=== PATIENT | male | born 1950 | race Caucasian/White ===

== ENCOUNTER 2016-05-31 10:46 | Emergency (ER) | payer BC, OTHER ==
[2016-05-31 10:48] VITALS: TEMP 98.4
[2016-05-31 10:55] VITALS: BMI 49.4
--- NOTE | 2016-05-31 11:30 | EDPRACDOC ---
- General Information Chief Complaint: Generalized Weakness Stated Complaint: WEAKNESS Time Seen by Provider: 05/31/16 11:12 Mode Of Arrival: Car Home Medications: Home Medications Pravastatin Sodium [Pravachol] 20 mg PO HS 04/15/14 Aspirin [Aspirin EC] 81 mg PO HS 05/31/16 Cholecalciferol (Vitamin D3) [Vitamin D3] 1,000 unit PO QAM 05/31/16 Cyanocobalamin (Vitamin B-12) [B-12] 1,500 mcg PO QAM 05/31/16 Docusate Sodium [Doc-Q-Lace] 100 mg PO DAILY PRN 05/31/16 Fluticasone Propionate [Flonase Nasal [place]] 1 spray [place] HS 05/31/16 Fluticasone/Vilanterol [Breo Ellipta 200-25 Mcg INH] 1 puff INH DAILY PRN Furosemide [Lasix] 20 mg PO DAILY 05/31/16 Insulin Detemir [Levemir] 30 unit SQ HS 05/31/16 Lisinopril/Hydrochlorothiazide [Lisinopril-Hctz 10-12.5 mg Tab] 1 tab PO QAM 10/09 Pioglitazone HCl/Metformin HCl [Actoplus Met 15 mg-850 mg Tab] 1 each PO BID 10/09 Ranolazine [Ranexa] 500 mg PO BID 05/31/16 Tamsulosin HCl [Flomax] 0.4 mg PO HS 05/31/16 Allergies/Adverse Reactions: Allergies Allergy/AdvReac Type Severity Reaction Status Date / Time Iodinated Contrast Media - Allergy Intermediate Fever Verified 05/31/16 11:42 IV Dye iodine Allergy Fever Verified 05/31/16 11:42 - History of Present Illness Onset: 4 days ago Exact Onset of Symptoms: Unknown HPI: PT SAID THAT HE'S HAD WEAKNESS FOR THE PAST FEW DAYS. HE DEVELOPED SLURRED SPEECH ON TUESDAY (05/27). PT SAID THAT HE IS DRAGGING HIS FEET. Symptoms Started: Reports: Gradually Symptoms Description: Constant Weakness: Bilateral: Generalized Symptoms: Reports: Weak Associated signs and symptoms:: Reports: None ED Past Medical History - Patient Medical History Cardiac History: Reports: Coronary Artery Disease, Hypertension, Congestive Heart Failure, Cardiac Catheterization (2002), CABG, Hypercholesterolemia. Denies: Heart Attack (UNKNOWN) Respiratory History: Reports: Asthma. Denies: Pneumonia GI/ History: Reports: IBD, Diverticulosis, Pancreatitis Musculoskeletal History: Reports: Arthritis Systemic History: Reports: Cancer (prostate). Denies: Anemia Surgical History: Reports: Cholecystectomy, CABG, Cardiac Catheterization (2002) , Other (PROSTATECTOMY) - Family Medical History Reports: Hypertension (MOTHER), Diabetes, Cancer (FATHER PROSTATE CA), Cardiac Disorders (MOTHER). Denies: Stroke - Social Medical History Smoking Status: Former smoker ETOH: None Substance Abuse: None Lives With: Spouse Lives In: Home EDM Review of Systems - Review of Systems ROS Negative Except as Marked: Yes All systems reviewed and were negative except as marked Constitutional: Weakness Neurological: Speech Difficulty - Physical Exam Constitutional: Alert (Awake), No apparent distress Oriented to: Time, Person, Place Last recorded Vital Signs: Last Vital Signs Temp 98.4 F 05/31/16 10:48 Pulse 72 05/31/16 10:48 Resp 18 05/31/16 10:48 BP 215/93 H 05/31/16 10:48 Pulse Ox 99 05/31/16 10:48 Oxygen Pulse Oxygen Saturation 99 O2 Device Oxygen Flow Rate Fraction of Inspired Oxygen ( FIO2) - HEENT Head: Normal ( normocephalic) Eye Exam: Normal (PERRL, EOMI, Sclera white) Oropharynx: Normal (Pharynx:Moist without exudate,Gums-no swelling) ENT EAC: Normal TMJ: Normal Nose: No Symptoms Reported (septum midline) Neck: Normal (FROM, trachea at midline) - Respiratory/Cardiovascular Respiratory: Normal - CTA (BBS clear to auscultation without adventitious sounds ) Cardiovascular: Normal (RRR without murmur, gallop or rub) - GI Auscultation: Normal (NABS) Palpation: Normal (Soft,No rebound or guarding, non distended) Tenderness: Non tender Wells's Sign: Negative - Musculoskeletal Back: Normal (Non-Tender) Extremities: Normal (Normal tone, Pulses 2+ No cyanosis or edema, FROM) - Integumentary Skin: Normal, Warm, Dry Lymphatics: Normal (no adenopathy) - Neurologic Memory Impaired: Normal Motor Function: Normal (Normal tone, Pulses 2+ No cyanosis or edema, FROM) Cranial Nerve: Normal (CN II-X11 intact sensation, strength 5/5) Cerebellar: Normal Mood Description: Normal Perception: Normal - Re-evaluation Re-evaluation 1 Re-evaluation Time: 13:54 (FEELING BETTER.) - Results 05/31/16 11:28 05/31/16 11:28 - EKG EKG #1 EKG Time: 11:13 -: Yes EKG interpreted by me Rate: bpm: 61 [place]: Normal Rhythm: NSR Block: RBBB Hypertrophy: None ST: Normal - Diagnostic Imaging Chest Image interpreted by: Radiologist Limited study with no acute abnormalities identified. - Additional Information PT ABLE TO AMBULATE WITH OUT DIFFICULTY. Decision Time to Discharge: 13:54 - Departure Yes I personally saw and evaluated the patient. Disposition: Home Condition: Fair Final Diagnosis: Poorly controlled type 2 diabetes mellitus, TIA (transient ischemic attack) Instructions: Transient Ischemic Attack (ED), Type 2 Diabetes in Adults (ED) Education/Counseling Given To: Patient, Family Member Education/Counseling Given Regarding: Diagnosis, Treatment, Follow Up Referrals: None,No Provider [NonStaff] - One Week Rolo Bernabe MD [Staff Physician] - One Week Prescriptions: No Action Pravastatin Sodium [Pravachol] 20 mg PO HS Cholecalciferol (Vitamin D3) [Vitamin D3] 1,000 unit PO QAM Aspirin [Aspirin EC] 81 mg PO HS Tamsulosin HCl [Flomax] 0.4 mg PO HS Furosemide [Lasix] 20 mg PO DAILY Docusate Sodium [Doc-Q-Lace] 100 mg PO DAILY PRN PRN Reason: Constipation Ranolazine [Ranexa] 500 mg PO BID Pioglitazone HCl/Metformin HCl [Actoplus Met 15 mg-850 mg Tab] 1 each PO BID Lisinopril/Hydrochlorothiazide [Lisinopril-Hctz 10-12.5 mg Tab] 1 tab PO QAM Cyanocobalamin (Vitamin B-12) [B-12] 1,500 mcg PO QAM Insulin Detemir [Levemir] 30 unit SQ HS Fluticasone/Vilanterol [Breo Ellipta 200-25 Mcg INH] 1 puff INH DAILY PRN PRN Reason: BREATHING Fluticasone Propionate [Flonase Nasal [place]] 1 spray [place] HS Forms: Patient Discharge Instructions, ED Discharge Instructions Additional Instructions: INCREASE ASA TO 325 MG DAILY. MAY NEED OUTPATIENT CAROTID US.
[2016-05-31 11:42] LABS: AUTOMATED BASOPHIL 1.1 % (0-2); AUTOMATED EOSINOPHIL 2.1 % (0-5); AUTOMATED LYMPH 17.5 % (17-44); AUTOMATED MONOCYTE 8.7 % (3-10); AUTOMATED NEUTROPHIL 70.6 % (45-76); MPV 7.7 fL (7.4-10.4)
[2016-05-31 11:55] LABS: BLOOD UREA NITROGEN 18 MG/DL (9-20); CALCIUM 9.5 MG/DL (8.4-10.2); CALCULATED OSMOLALITY 279 MOs/Kg (270-290); CHLORIDE 100 mEq/L (98-107); GLUCOSE 298 mg/dL (70-99); PARTIAL THROMB. TIME 26.1 SEC (22-35); SODIUM LEVEL 138 mEq/L (137-146); TOTAL PROTEIN 7.2 G/DL (6.3-8.2)
--- NOTE | 2016-05-31 12:11 | DIRPT ---
CLINICAL DATA: Mental status change EXAM: PORTABLE CHEST 1 VIEW COMPARISON: January 29, 2015 FINDINGS: The study is limited due to the portable technique. No pneumothorax. Low volumes limit evaluation. Probable atelectasis in the left lung base. The cardiomediastinal silhouette is unchanged. No acute abnormalities identified. A PA and lateral chest x-ray could better evaluate. IMPRESSION: Limited study with no acute abnormalities identified. Electronically Signed By: Hunter Busch III, M.D On: 05/31/2016 12:09
--- NOTE | 2016-05-31 12:52 | DIRPT ---
CLINICAL DATA: Mental status changes, slurred speech today. EXAM: CT HEAD WITHOUT CONTRAST TECHNIQUE: Contiguous axial images were obtained from the base of the skull through the vertex without intravenous contrast. COMPARISON: None. FINDINGS: Small left basal ganglia lacunar infarct versus dilated perivascular space. No acute intracranial abnormality. Specifically, no hemorrhage, hydrocephalus, mass lesion, acute infarction, or significant intracranial injury. No acute calvarial abnormality. Visualized paranasal sinuses and mastoids clear. Orbital soft tissues unremarkable. IMPRESSION: No acute intracranial abnormality. Electronically Signed By: Reji Bolton M.D. On: 05/31/2016 12:50
[2016-05-31 13:28] LABS: LEUKOCYTES/URINE NEG (NEGATIVE); NITRITE/URINE NEG (NEGATIVE); RBC/URINE 0-2 (0-2); URINE OCCULT BLOOD NEG (NEG/TRACE); WBC/URINE 0-2 (0-2)
[2016-05-31] MEDS ORDERED: REGULAR INSULIN 100 UNITS/ML - 3 ML VIAL IV ONE (14:00)
[2016-05-31 14:32] VITALS: PULSE 62
[2016-05-31 14:33] VITALS: BP 156/68
== END 2016-05-31 14:15 | disposition home or self-care (01) ==
LOC: ED 10:46
DX: E11.65 Type 2 diabetes mellitus with hyperglycemia (principal); G45.9 Transient cerebral ischemic attack, unspecified; I25.10 Atherosclerotic heart disease of native coronary artery without angina pectoris; I10 Essential (primary) hypertension; I50.9 Heart failure, unspecified; E78.00 Pure hypercholesterolemia, unspecified; J45.909 Unspecified asthma, uncomplicated; Z79.899 Other long term (current) drug therapy; Z79.4 Long term (current) use of insulin
CPT/HCPCS: 36415; 70450; 71010; 80053; 81001; 82962; 84484; 85025; 85610; 85730; 93005; 96374; 99284; J3490

== ENCOUNTER 2016-06-03 13:19 | Inpatient (IN) | payer BC ==
--- NOTE | 2016-06-03 14:48 | EDPRACDOC ---
- General Information Information Source: Patient Mode of Arrival:: Car - History of Present Illness Exact Onset of Symptoms: Unknown Symptoms Started: Reports: Gradually Symptoms: Reports: Difficulty walking, Slurred speech Symptoms Description: Constant Symptom Severity: Reports: Does not affect activitiy Weakness: Left: Arm (WEAKNESS), Leg (WEAKNESS) Relevant History of: Reports: DM HPI: PT PRESENTS FOLLOWING HAVING AN MRI DONE THIS AM WHICH SHOWED A LARGE ACUTE OBIE INFARCT. PT WAS SEEN AT THIS FACILITY SEVERAL DAYS AGO AND HAD A CT SCAN DONE WHICH WAS NORMAL. PT PRESENTS WITH ONGOING SYMPTOMS OF SLURRED SPEECH, LEFT SIDED WEAKNESS AND EXPRESSIVE APHASIA. <Nita Mac - Last Filed: 06/03/16 15:01> <Dion Brar - Last Filed: 06/03/16 16:28> - General Information Chief Complaint: Neuro Symptoms/Deficits Stated Complaint: STROKE MRI DONE THIS AM Time Seen by Provider: 06/03/16 14:19 Home Medications: Home Medications Pravastatin Sodium [Pravachol] 20 mg PO QHS 04/15/14 Cholecalciferol (Vitamin D3) [Vitamin D3] 1,000 unit PO QAM 05/31/16 Cyanocobalamin (Vitamin B-12) [B-12] 1,500 mcg PO QAM 05/31/16 Docusate Sodium [Doc-Q-Lace] 100 mg PO DAILY PRN 05/31/16 Fluticasone Propionate [Flonase Nasal [place]] 1 spray [place] HS 05/31/16 Fluticasone/Vilanterol [Breo Ellipta 200-25 Mcg INH] 1 puff INH DAILY PRN Furosemide [Lasix] 20 mg PO DAILY 05/31/16 Insulin Detemir [Levemir] 30 unit SQ QHS 05/31/16 Lisinopril/Hydrochlorothiazide [Lisinopril-Hctz 10-12.5 mg Tab] 1 tab PO QAM 10/09 Pioglitazone HCl/Metformin HCl [Actoplus Met 15 mg-850 mg Tab] 1 tab PO BID 10/09 Ranolazine [Ranexa] 500 mg PO BID 05/31/16 Tamsulosin HCl [Flomax] 0.4 mg PO QHS 05/31/16 Aspirin/Calcium Carbonate/Mag [Aspirin Buffered 325 mg Tab] 325 mg PO QHS Allergies/Adverse Reactions: Allergies Allergy/AdvReac Type Severity Reaction Status Date / Time Iodinated Contrast Media - Allergy Intermediate Fever Verified 06/03/16 14:05 IV Dye iodine Allergy Fever Verified 06/03/16 14:05 ED Past Medical History - History Reviewed Yes Nurses notes reviewed and agree except as marked - Patient Medical History Cardiac History: Reports: Coronary Artery Disease, Hypertension, Congestive Heart Failure, Cardiac Catheterization (2002), CABG, Hypercholesterolemia. Denies: Heart Attack (UNKNOWN) Respiratory History: Reports: Asthma. Denies: Pneumonia GI/ History: Reports: IBD, Diverticulosis, Pancreatitis Musculoskeletal History: Reports: Arthritis Psychological History: Denies: Depression Systemic History: Reports: Cancer (prostate). Denies: Anemia Surgical History: Reports: Cholecystectomy, CABG, Cardiac Catheterization (2002) , Other (PROSTATECTOMY) - Family Medical History Reports: Hypertension (MOTHER), Diabetes, Cancer (FATHER PROSTATE CA), Cardiac Disorders (MOTHER). Denies: Stroke - Social Medical History Smoking Status: Former smoker <Nita Mac - Last Filed: 06/03/16 15:01> EDM Review of Systems - Review of Systems ROS Negative Except as Marked: Yes All systems reviewed and were negative except as marked <Nita Mac - Last Filed: 06/03/16 15:01> - Physical Exam Constitutional: Alert, Well nourished, Well appearing Oriented to: Time, Person, Place Last recorded Vital Signs: Last Vital Signs Temp 98.3 F 06/03/16 14:00 Pulse 84 06/03/16 14:00 Resp 18 06/03/16 14:00 BP 191/84 H 06/03/16 14:00 Pulse Ox 97 06/03/16 14:00 Oxygen Pulse Oxygen Saturation 97 O2 Device Room Air Oxygen Flow Rate Fraction of Inspired Oxygen ( FIO2) - HEENT Head: Normal ( normocephalic) Eye Exam: Normal (PERRL, EOMI, Sclera white) Oropharynx: Normal (Pharynx:Moist without exudate,Gums-no swelling) Tympanic Membrane: Normal Nose: No Symptoms Reported (septum midline) Neck: Normal (FROM, trachea at midline) - Respiratory/Cardiovascular Respiratory: Normal - CTA (BBS clear to auscultation without adventitious sounds ) Cardiovascular: Normal (RRR without murmur, gallop or rub) - GI Auscultation: Normal (NABS) Palpation: Normal (Soft,No rebound or guarding, non distended) Tenderness: Non tender Wells's Sign: Negative Rectal Exam: Deferred - Musculoskeletal Back: Normal (Non-Tender) Extremities: Normal (Normal tone, Pulses 2+ No cyanosis or edema, FROM) - Integumentary Skin: Normal, Warm, Dry Lymphatics: Normal (no adenopathy) - Neurologic Memory Impaired: Normal Motor Function: Normal (Normal tone, Pulses 2+ No cyanosis or edema, FROM) Cranial Nerve: Normal (CN II-X11 intact sensation, strength 5/5) Cerebellar: Normal Mood Description: Normal Thought: Coherent Perception: Normal <Nita Mac - Last Filed: 06/03/16 15:01> - Physical Exam Last recorded Vital Signs: Last Vital Signs Temp 98.3 F 06/03/16 14:00 Pulse 72 06/03/16 15:05 Resp 18 06/03/16 15:05 BP 146/64 06/03/16 15:05 Pulse Ox 96 06/03/16 15:05 Oxygen Pulse Oxygen Saturation 96 O2 Device Room Air Oxygen Flow Rate Fraction of Inspired Oxygen ( FIO2) <Dion Brar - Last Filed: 06/03/16 16:28> NIH Stroke Scale Initial Evaluation Level of Consciousness: Alert LOC- Question: Answers Both Correctly LOC Commands: Both Task Correctly Best Gaze: Normal Visual: No Visual Loss Facial Palsy: Normal Movement Motor Arm LEFT: No Drift Motor Arm RIGHT: No Drift Motor Leg LEFT: No Drift Motor Leg RIGHT: No Drift Limb Ataxia: Absent Sensory: Normal Best Language: Mild to Moderate Aphasia Dysarthria: Normal Extinction and Inattention: No Abnormality (Neglect) Score: 1out of42 <Nita Mac - Last Filed: 06/03/16 15:01> - Differential Diagnosis CVA - Action Has patient received an Antithrombotic in the last 24hrs?: No Was an Antithrombotic given in the ED?: No Is patient a candidate for lytic therapy?: No Patient received TPA within 30 min of arrival?: No Reason IV Thrombolytics Contraindicated: Onset Undetermined Stroke Discharge Education: Risk Factors, Seeking Emerg. Treatment, Warning Signs/Symptoms, Medications at Discharge, Follow Up after Discharge - Results 06/03/16 14:30 06/03/16 14:30 - EKG EKG #1 EKG Time: 14:59 -: Yes EKG interpreted by me Rate: bpm: 71 [place]: Normal Rhythm: NSR Block: 1, AVB, RBBB Hypertrophy: None ST: Normal <Nita Mac W - Last Filed: 06/03/16 15:01> - Results 06/03/16 14:30 06/03/16 14:30 WBC 7.4 xk/uL (3.8-10.8) 06/03/16 14:30 RBC 4.97 xM/uL (4.70-6.10) 06/03/16 14:30 Hgb 14.4 g/dL (14.0-18.0) 06/03/16 14:30 Hct 43.3 % (42-52) 06/03/16 14:30 MCV 87 fL (80-94) 06/03/16 14:30 MCH 29.0 pg (27-32) 06/03/16 14:30 MCHC 33.4 g/dl (33-36) 06/03/16 14:30 RDW 13.2 % (11.5-14.5) 06/03/16 14:30 Plt Count 210 xk/uL (130-400) 06/03/16 14:30 MPV 8.4 fL (7.4-10.4) 06/03/16 14:30 Neut % (Auto) 74.3 % (45-76) 06/03/16 14:30 Lymph % (Auto) 17.8 % (17-44) 06/03/16 14:30 [place] % (Auto) 6.2 % (3-10) 06/03/16 14:30 Eos % (Auto) 0.7 % (0-5) 06/03/16 14:30 Baso % (Auto) 1.0 % (0-2) 06/03/16 14:30 Absolute Neuts (auto) 5.48 xk/uL (1.7-8.2) 06/03/16 14:30 Absolute Lymphs (auto) 1.26 xk/uL (0.65-4.75) 06/03/16 14:30 Sodium 136 mEq/L (137-146) L 06/03/16 14:30 Potassium 4.2 mEq/L (3.5-5.1) 06/03/16 14:30 Chloride 101 mEq/L (98-107) 06/03/16 14:30 Carbon Dioxide 25 mMOL/L (22-33) 06/03/16 14:30 Anion Gap 14 mEq/L (8-16) 06/03/16 14:30 BUN 21 MG/DL (9-20) H 06/03/16 14:30 Creatinine 0.90 MG/DL (0.66-1.25) 06/03/16 14:30 Estimated GFR (MDRD) > 60 mL/min (>=60) 06/03/16 14:30 Glucose 253 mg/dL (70-99) H 06/03/16 14:30 Calculated Osmolality 274 MOs/Kg (270-290) 06/03/16 14:30 Calcium 9.4 MG/DL (8.4-10.2) 06/03/16 14:30 Total Bilirubin 1.0 MG/DL (0.2-1.3) 06/03/16 14:30 AST 21 IU/L (17-59) 06/03/16 14:30 ALT 35 IU/L (21-72) 06/03/16 14:30 Alkaline Phosphatase 75 IU/L (50-160) 06/03/16 14:30 Total Protein 7.0 G/DL (6.3-8.2) 06/03/16 14:30 Albumin 4.0 G/DL (3.5-5.0) 06/03/16 14:30 Urine Color Yellow 06/03/16 14:50 Urine Clarity Clear 06/03/16 14:50 Urine pH 5.0 (5.0-8.0) 06/03/16 14:50 Ur Specific [place] 1.020 (1.003-1.035) 06/03/16 14:50 Urine Protein Neg (NEG/TRACE) 06/03/16 14:50 Urine Glucose (UA) 3+ (NEGATIVE) 06/03/16 14:50 Urine Ketones Neg (NEGATIVE) 06/03/16 14:50 Urine Occult Blood Neg (NEG/TRACE) 06/03/16 14:50 Urine Nitrite Neg (NEGATIVE) 06/03/16 14:50 Urine Bilirubin Neg (NEGATIVE) 06/03/16 14:50 Urine Urobilinogen <2.0 MG/DL (0-1) 06/03/16 14:50 Ur Leukocyte Esterase Neg (NEGATIVE) 06/03/16 14:50 Urine RBC 0-2 (0-2) 06/03/16 14:50 Urine WBC 0-2 (0-2) 06/03/16 14:50 Urine Mucus Occ (NEG/OCC) 06/03/16 14:50 Lab Results 06/03/16 06/03/16 06/03/16 14:50 14:30 14:30 WBC 7.4 RBC 4.97 Hgb 14.4 Hct 43.3 MCV 87 MCH 29.0 MCHC 33.4 RDW 13.2 Plt Count 210 MPV 8.4 Neut % (Auto) 74.3 Lymph % (Auto) 17.8 [place] % (Auto) 6.2 Eos % (Auto) 0.7 Baso % (Auto) 1.0 Absolute Neuts (auto) 5.48 Absolute Lymphs (auto) 1.26 Sodium 136 L Potassium 4.2 Chloride 101 Carbon Dioxide 25 Anion Gap 14 BUN 21 H Creatinine 0.90 Estimated GFR (MDRD) > 60 Glucose 253 H Calculated Osmolality 274 Calcium 9.4 Total Bilirubin 1.0 AST 21 ALT 35 Alkaline Phosphatase 75 Total Protein 7.0 Albumin 4.0 Urine Color Yellow Urine Clarity Clear Urine pH 5.0 Ur Specific [place] 1.020 Urine Protein Neg Urine Glucose (UA) 3+ Urine Ketones Neg Urine Occult Blood Neg Urine Nitrite Neg Urine Bilirubin Neg Urine Urobilinogen <2.0 Ur Leukocyte Esterase Neg Urine RBC 0-2 Urine WBC 0-2 Urine Mucus Occ <Dion Brar - Last Filed: 06/03/16 16:28> - Departure Disposition: Admit IP To This Hospital Education/Counseling Given To: Patient Education/Counseling Given Regarding: Diagnosis, Treatment, Prognosis, Follow Up <Nita Mac - Last Filed: 06/03/16 15:01> - Departure Disposition: Admit IP To This Hospital Decision to Admit Time: 16:27 Decision to admit date: 06/03/16 Decision to admit: from ED - Physician Consulted Neurology Time Called: 16:27 Provider Called: Dequan Gomez Time Quality Officer Returned Call: 16:27 Consult Reason: RECOMMENDS ADMIT, CVA WORKUP, PT, SPEECH Hospitalist Time Called: 16:28 Provider Called: Luis Alfredo Miranda Time Quality Officer Returned Call: 16:28 <Dion Brar - Last Filed: 06/03/16 16:28> - Departure Condition: Stable Final Diagnosis: CVA (cerebral vascular accident) Qualifiers: CVA mechanism: unspecified Qualified Code(s): I63.9 - Cerebral infarction, unspecified Prescriptions: No Action Pravastatin Sodium [Pravachol] 20 mg PO QHS Cholecalciferol (Vitamin D3) [Vitamin D3] 1,000 unit PO QAM Tamsulosin HCl [Flomax] 0.4 mg PO QHS Furosemide [Lasix] 20 mg PO DAILY Docusate Sodium [Doc-Q-Lace] 100 mg PO DAILY PRN PRN Reason: Constipation Ranolazine [Ranexa] 500 mg PO BID Pioglitazone HCl/Metformin HCl [Actoplus Met 15 mg-850 mg Tab] 1 tab PO BID Lisinopril/Hydrochlorothiazide [Lisinopril-Hctz 10-12.5 mg Tab] 1 tab PO QAM Cyanocobalamin (Vitamin B-12) [B-12] 1,500 mcg PO QAM Insulin Detemir [Levemir] 30 unit SQ QHS Fluticasone/Vilanterol [Breo Ellipta 200-25 Mcg INH] 1 puff INH DAILY PRN PRN Reason: BREATHING Fluticasone Propionate [Flonase Nasal [place]] 1 spray [place] HS Aspirin/Calcium Carbonate/Mag [Aspirin Buffered 325 mg Tab] 325 mg PO QHS
[2016-06-03 14:59] LABS: AUTOMATED EOSINOPHIL 0.7 % (0-5); AUTOMATED LYMPH 17.8 % (17-44); AUTOMATED MONOCYTE 6.2 % (3-10); AUTOMATED NEUTROPHIL 74.3 % (45-76); MPV 8.4 fL (7.4-10.4)
[2016-06-03 15:07] LABS: BLOOD UREA NITROGEN 21 MG/DL (9-20); CALCIUM 9.4 MG/DL (8.4-10.2); CALCULATED OSMOLALITY 274 MOs/Kg (270-290); CHLORIDE 101 mEq/L (98-107); GLUCOSE 253 mg/dL (70-99); SODIUM LEVEL 136 mEq/L (137-146)
[2016-06-03 15:08] LABS: LEUKOCYTES/URINE NEG (NEGATIVE); NITRITE/URINE NEG (NEGATIVE); RBC/URINE 0-2 (0-2); URINE OCCULT BLOOD NEG (NEG/TRACE); WBC/URINE 0-2 (0-2)
[2016-06-03] MEDS ORDERED: DEXTROSE 25 GM/50 ML PFS IV PRN (16:58)
[2016-06-03] MEDS ORDERED: Albuterol/Ipratropium Neb 3 ML NEB NEB PRN (16:58)
[2016-06-03] MEDS ORDERED: GLUCAGON 1 MG VIAL SQ PRN (16:58)
[2016-06-03] MEDS ORDERED: GLUCOSE (ORAL GEL) 15 GM TUBE PO PRN (16:58)
[2016-06-03] MEDS ORDERED: Non-Formulary Medication ITEM (Fluticasone/Vilanterol [Breo Ellipta 200-25 Mcg Inh] 1 PU INH PRN (17:03)
[2016-06-03] MEDS ORDERED: BUDESONIDE 0.5 MG NEB NEB PRN (17:16)
[2016-06-03] MEDS ORDERED: ALBUTEROL 0.083% 3 ML NEB NEB PRN (17:17)
--- NOTE | 2016-06-03 17:21 | HISTPHYS ---
- Chief Complaint left sided weaknesss, ataxia, slurred speach - History of Present Illness 65 yowm sent to emergency room early on today for evaluation of CVA. Patient family reports that despite acidity fairly abruptly he has developed slurring of the speech and left-sided weakness dysphagia and expressive aphasia. He stays that right upper extremity weakness was much more pronounced than the lower extremity. Family noticed confusion periods of disorientation and difficulties finding words. Patient reports headaches but denies any blurring or double vision. stays that since steady his speech has been persistently slurred and he has been having episodes of coughing, choking and throat clearing with eating. Patient has been feeling dizzy lightheaded and off balance. Family recommended evaluation at the onset of symptoms however refused to go to emergency room. Given persistence of the symptoms patient was seen by his PCP and MRI was obtained which showed right-sided pontine CVA. After over the phone consultation with neurologist he was advised to proceed to emergency room for further evaluation. Patient denies any falls or accidents, there has been no seizure activity since the onset of his neurological symptoms. - Medical History Cardiac History: Reports: Coronary Artery Disease, Hypertension, Congestive Heart Failure, Cardiac Catheterization (2002), CABG, Hypercholesterolemia, Valvular Heart Disease. Denies: Heart Attack (UNKNOWN) Respiratory History: Reports: Asthma. Denies: Pneumonia GI/ History: Reports: IBD, Diverticulosis, Pancreatitis Musculoskeletal History: Reports: Arthritis Systemic History: Reports: Cancer (prostate). Denies: Anemia Neurological History: Reports: Cerebrovascular Accident Psychological History: Denies: Depression - Surgical History Reports: Cholecystectomy, CABG, Cardiac Catheterization (2002), Other ( PROSTATECTOMY, right tkr) - Medictions/Allergies Allergies Iodinated Contrast Media - IV Dye Allergy (Intermediate, Verified 06/03/16 14:05 ) Fever iodine Allergy (Verified 06/03/16 14:05) Fever Current Medication List: Reviewed Home Medications Pravastatin Sodium [Pravachol] 20 mg PO QHS 04/15/14 Cholecalciferol (Vitamin D3) [Vitamin D3] 1,000 unit PO QAM 05/31/16 Cyanocobalamin (Vitamin B-12) [B-12] 1,500 mcg PO QAM 05/31/16 Docusate Sodium [Doc-Q-Lace] 100 mg PO DAILY PRN 05/31/16 Fluticasone Propionate [Flonase Nasal [place]] 1 spray [place] HS 05/31/16 Fluticasone/Vilanterol [Breo Ellipta 200-25 Mcg INH] 1 puff INH DAILY PRN Furosemide [Lasix] 20 mg PO DAILY 05/31/16 Insulin Detemir [Levemir] 30 unit SQ QHS 05/31/16 Lisinopril/Hydrochlorothiazide [Lisinopril-Hctz 10-12.5 mg Tab] 1 tab PO QAM 10/09 Pioglitazone HCl/Metformin HCl [Actoplus Met 15 mg-850 mg Tab] 1 tab PO BID 10/09 Ranolazine [Ranexa] 500 mg PO BID 05/31/16 Tamsulosin HCl [Flomax] 0.4 mg PO QHS 05/31/16 Aspirin/Calcium Carbonate/Mag [Aspirin Buffered 325 mg Tab] 325 mg PO QHS - Family History Reports: Hypertension (MOTHER), Diabetes, Cancer (FATHER PROSTATE CA), Cardiac Disorders (MOTHER). Denies: Stroke - Social History Travel Outside of [place] in the Last 3 Months?: No Lives: With Family Smoking Status: Former smoker - Review of Systems Constitutional: Diaphoresis, Loss of Appetite, Weakness Eyes: No Symptoms Reported Nose: No Symptoms Reported Mouth: No Symptoms Reported Throat/Neck: No Symptoms Reported Respiratory: Dyspnea Cardiovascular: No Symptoms Reported Gastrointestinal: No Symptoms Reported, Constipation, Heartburn Genitourinary: Nocturia Neurological: Dizziness, Gait Difficulty, Numbness, Speech Difficulty, Weakness , Memory Changes, Changes in Orientation Musculoskeletal:: Arthritis Integumentary: No Symptoms Reported Allergic/Immunologic: No Symptoms Reported Hematologic: No Symptoms Reported Endocrine: No Symptoms Reported Psychiatric: Anxiety - Physical Exam Vital Signs: Initial Vitals Temperature 98.3 F 06/03/16 14:00 Pulse Rate 84 06/03/16 14:00 Respiratory Rate 18 06/03/16 14:00 Blood Pressure 191/84 H 06/03/16 14:00 Pulse Oxygen Saturation 97 06/03/16 14:00 Constitutional: Alert, Other (Slurring of the speech noted) Oriented to: Time, Person, Place - HEENT Head: Normal Eye: Normal Oropharynx: Normal ENT EAC: Normal TMJ: Normal Nose: No Symptoms Reported Respiratory: Diminished, Rhonchi Cardiovascular: Normal, Systolic murmur - GI Auscultation: Normal Palpation: Normal Tenderness: Non tender Rectal Exam: Deferred - Exam Deferred: Yes - Musculoskeletal Back: Normal Extremities: Normal, Edema Spine: limited range of motion - Integumentary Skin: Normal, Warm, Dry Lymphatics: Normal - Neurologic Memory Impaired: Normal Motor Function: Abnormal Cranial Nerve: negative: 12 Cerebellar: Ataxia Mood Description: Normal, Anxious Thought: Coherent Perception: Normal - Focused CV Perfusion Exam Vital Signs: Last Vital Signs Temp 98.3 F 06/03/16 14:00 Pulse 72 06/03/16 15:05 Resp 18 06/03/16 15:05 BP 146/64 06/03/16 15:05 Pulse Ox 96 06/03/16 15:05 - Diagnostic Findings 06/03/16 14:30 06/03/16 14:30 Initial Vitals Temperature 98.3 F 06/03/16 14:00 Pulse Rate 84 06/03/16 14:00 Respiratory Rate 18 06/03/16 14:00 Blood Pressure 191/84 H 06/03/16 14:00 Pulse Oxygen Saturation 97 06/03/16 14:00 Patient Name: MARYLOU ARAYA LOC: AMB.MRI.01 : 1950 AGE: 65 Order Date:06/03/16 Date of Service:01/09 Report # [id number] Ord Physician: Nidia Garcia NP Exam # [id number] Emergency Physician: Exam(s): [id number] MRI/MRI HEAD WITH WITHOUT CM CLINICAL DATA: Possible stroke. Slurred speech and left-sided weakness beginning 4-5 days ago. History of prostate cancer. EXAM: MRI HEAD WITHOUT AND WITH CONTRAST TECHNIQUE: Multiplanar, multiecho pulse sequences of the brain and surrounding structures were obtained without and with intravenous contrast. CONTRAST: 20 mL MultiHance COMPARISON: Head CT 05/31/2016 FINDINGS: There is a 2 x 1 cm focus of restricted diffusion in the right paramedian yosi consistent with acute infarct. Associated cytotoxic edema is noted without mass effect. There is no evidence of intracranial hemorrhage, mass, midline shift, or extra-axial fluid collection. There is mild cerebral atrophy. Foci of T2 hyperintensity in the periventricular greater than subcortical cerebral white matter bilaterally are nonspecific but compatible with mild chronic small vessel ischemic disease. No abnormal enhancement is identified. Orbits are unremarkable. Paranasal sinuses and mastoid air cells are clear. Major intracranial vascular flow voids are preserved. IMPRESSION: 1. Acute right paramedian pontine infarct. 2. Mild chronic small vessel ischemic disease in the cerebral white matter. These results will be called to the ordering clinician or title insurance sales representative by the Radiology Department at the imaging location. Electronically Signed By: Robert Saleh M.D. 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 Will complete stroke workup with carotid Dopplers and 2D echo (2) Poorly controlled type 2 diabetes mellitus E11.65 - TYPE 2 DIABETES MELLITUS WITH HYPERGLYCEMIA Acute Present on Admission: Yes Will up titrate Levemir to keep blood sugar under control. Continue ADA diet and sliding scale regular insulin. (3) Essential hypertension I10 - ESSENTIAL (PRIMARY) HYPERTENSION Acute Present on Admission: Yes Continue meds keep SBP above 140 (4) Hyperlipemia E78.5 - HYPERLIPIDEMIA, UNSPECIFIED Chronic Present on Admission: Yes Qualifiers: Hyperlipidemia type: mixed hyperlipidemia Qualified Code(s): E78.2 - Mixed hyperlipidemia Continue statin (5) CAD (coronary artery disease), [place] coronary artery I25.10 - ATHSCL HEART DISEASE OF [place] CORONARY ARTERY W/O ANG PCTRS Chronic Present on Admission: Yes Qualifiers: [place] vs. transplanted heart: [place] heart Associated angina: with stable angina Qualified Code(s): I25.118 - Atherosclerotic heart disease of [place] coronary artery with other forms of angina pectoris Continue medical therapy. Consult Cardiology. (6) Obesity E66.9 - OBESITY, UNSPECIFIED Chronic Present on Admission: Yes Qualifiers: Obesity type: due to excess calories Weight loss medically necessary and indicated Case Care Discussed with: Patient, Consultants, Family, Nursing Staff, Crop And Soil Scientist Total Time: 55 min . Critical Care: No Code: [id number]
[2016-06-03] MEDS ORDERED: ENOXAPARIN 80 MG/0.8 ML PFS SQ SCH (18:00)
[2016-06-03] MEDS ORDERED: INSULIN DETEMIR 100 UNITS/ML PEN SQ SCH ×2 (18:00→21:00)
[2016-06-03 18:50] VITALS: BMI 48.6
[2016-06-03] MEDS ORDERED: Vaccine Screening Complete SCH (19:00)
[2016-06-03] MEDS: REGULAR INSULIN 100 UNITS/ML - 3 ML VIAL SQ SCH ×2 (19:26→23:50)
[2016-06-03] MEDS: NS 1,000 ML IV SCH (19:45)
[2016-06-03] MEDS ORDERED: PIOGLITAZONE HCL PO SCH (21:00)
[2016-06-03] MEDS ORDERED: PRAVASTATIN 20 MG TAB PO SCH (21:00)
[2016-06-03] MEDS ORDERED: TAMSULOSIN HCL 0.4 MG CAP PO SCH (21:00)
[2016-06-03] MEDS ORDERED: METFORMIN HCL PO SCH (21:00)
[2016-06-03] MEDS ORDERED: [UNRECOGNIZED DRUG - OTHER] PO SCH (21:00)
[2016-06-03] MEDS: RANOLAZINE 500 MG EXT RELEASE TAB PO SCH (21:26)
[2016-06-04] MEDS: REGULAR INSULIN 100 UNITS/ML - 3 ML VIAL SQ SCH ×2 (06:23→12:42)
[2016-06-04] MEDS: METFORMIN 850 MG PO SCH ×2 (06:24→14:38)
[2016-06-04 07:16] VITALS: TEMP 98.3
[2016-06-04] MEDS: PIOGLITAZONE HCL 15 MG TAB PO SCH ×2 (07:35→14:38)
--- NOTE | 2016-06-04 07:37 | DIRPT ---
CLINICAL DATA: Pontine infarct. Left-sided weakness. EXAM: BILATERAL CAROTID DUPLEX ULTRASOUND TECHNIQUE: [place] scale imaging, color Doppler and duplex ultrasound were performed of bilateral carotid and vertebral arteries in the neck. COMPARISON: MRI 06/03/2016 FINDINGS: Criteria: Quantification of carotid stenosis is based on velocity parameters that correlate the residual internal carotid diameter with NASCET-based stenosis levels, using the diameter of the distal internal carotid lumen as the denominator for stenosis measurement. The following velocity measurements were obtained: RIGHT ICA: 108 cm/sec CCA: 112 cm/sec SYSTOLIC ICA/CCA RATIO: 1.0 DIASTOLIC ICA/CCA RATIO: 1.4 ECA: 163 cm/sec LEFT ICA: 108 cm/sec CCA: 129 cm/sec SYSTOLIC ICA/CCA RATIO: 0.8 DIASTOLIC ICA/CCA RATIO: 2.6 ECA: 24 cm/sec RIGHT CAROTID ARTERY: Evidence for echogenic plaque in the distal right internal carotid artery. There is no significant plaque or stenosis in the proximal right internal carotid artery. Right common carotid artery is widely patent without significant plaque or stenosis. Right external carotid artery is patent with normal waveforms and velocities. RIGHT VERTEBRAL ARTERY: Not visualized. LEFT CAROTID ARTERY: Small amount of echogenic plaque at the left carotid bulb and proximal internal carotid artery. Left external carotid artery appears to be patent but limited evaluation. LEFT VERTEBRAL ARTERY: Not visualized. IMPRESSION: The study has technical limitations. Bilateral carotid arteries are patent with a small amount of plaque at the left carotid bulb and in the distal right internal carotid artery. Estimated degree of stenosis in the internal carotid arteries is less than 50% bilaterally. Vertebral arteries are not identified on this examination. The neck arterial structures may be better characterized with an MRA examination. Electronically Signed By: Hemanth Burns M.D. On: 06/04/2016 07:35
[2016-06-04] MEDS: NS 1,000 ML IV SCH ×2 (08:09→14:38)
[2016-06-04] MEDS: RANOLAZINE 500 MG EXT RELEASE TAB PO SCH (08:14)
[2016-06-04] MEDS ORDERED: HYDROCHLOROTHIAZIDE 12.5 MG CAP PO SCH (09:00)
[2016-06-04] MEDS ORDERED: CYANOCOBALAMIN 1500 MCG PO SCH (09:00)
[2016-06-04] MEDS ORDERED: LISINOPRIL 10 MG TAB PO SCH ×2 (09:00→21:00)
[2016-06-04] MEDS ORDERED: CLOPIDOGREL 75 MG TAB PO SCH (09:00)
[2016-06-04] MEDS ORDERED: FUROSEMIDE 20 MG TAB PO SCH (09:00)
[2016-06-04] MEDS ORDERED: Non-Formulary Medication ITEM (Lisinopril/Hydrochlorothiazide [Lisinopril-Hctz 10-12.5 M PO SCH (09:00)
[2016-06-04] MEDS ORDERED: Non-Formulary Medication ITEM (Cholecalciferol (Vitamin D3) [Vitamin D3] 1,000 UNIT) PO SCH (09:00)
--- NOTE | 2016-06-04 10:22 | PCM.CARDCO ---
Consultation Date: 06/04/16 Requesting Physician: Mathew Wright Document Specialist: Rolo Bernabe Consult Reason: Stroke/TIA - History of Present Illness He is known to me with a history of CAD coronary artery bypass surgery 2002, stable ischemic heart disease markedly improved after recent addition of ranolazine to his medical regimen, diastolic heart failure hypertension and hyperlipidemia. Other problems include type 2 diabetes poorly controlled with an A1c of 9.2 obstructive sleep apnea and prostate cancer. Recent echocardiogram December 23, 2015 shows a low normal ejection fraction of 50 55% findings of diastolic heart failure and no significant valvular abnormality. He has no history of atrial fibrillation. For CAD is been maintained on aspirin beta-julia statin ranolazine. For diastolic heart failure takes furosemide For Hypertension she takes an ROSELINE-inhibitor. Prior to seeing the patient reviewed his echocardiogram which shows normal left ventricular function he has no history of atrial fibrillation or LV thrombus. Patient family wish my opinion regarding etiologies stroke, appears to be due to small intracranial vessel disease and the primary treatment would be aspirin statin and optimal hypertension and diabetic control. He said he had an abrupt onset of left-sided weakness dysarthria and has improved over the last several days. No associated headache or ictal activity. No recent anginal discomfort and mild exertional dyspnea that is chronic. No palpitation syncope. Chief Complaint: left sided weaknesss, ataxia, slurred speach - Past Medical and Surgical History Cardiac History: Reports: Coronary Artery Disease, Hypertension, Congestive Heart Failure, Cardiac Catheterization (2002), CABG, Hypercholesterolemia. Denies: Heart Attack (UNKNOWN) Respiratory History: Reports: Asthma. Denies: Pneumonia GI/ History: Reports: IBD, Diverticulosis, Pancreatitis Systemic History: Reports: Cancer (prostate). Denies: Anemia Musculoskeletal History: Reports: Arthritis Psychological History: Denies: Depression Neurological History: Reports: Cerebrovascular Accident (new) Past Surgical History: Reports: Cholecystectomy, CABG, Cardiac Catheterization ( 2002), Other (PROSTATECTOMY) Allergies Iodinated Contrast Media - IV Dye Allergy (Intermediate, Verified 06/03/16 14:05 ) Fever iodine Allergy (Verified 06/03/16 14:05) Fever Home Medications Pravastatin Sodium [Pravachol] 20 mg PO QHS 04/15/14 Cholecalciferol (Vitamin D3) [Vitamin D3] 1,000 unit PO QAM 05/31/16 Cyanocobalamin (Vitamin B-12) [B-12] 1,500 mcg PO QAM 05/31/16 Docusate Sodium [Doc-Q-Lace] 100 mg PO DAILY PRN 05/31/16 Fluticasone Propionate [Flonase Nasal [place]] 1 spray [place] HS 05/31/16 Fluticasone/Vilanterol [Breo Ellipta 200-25 Mcg INH] 1 puff INH DAILY PRN Furosemide [Lasix] 20 mg PO DAILY 05/31/16 Insulin Detemir [Levemir] 30 unit SQ QHS 05/31/16 Lisinopril/Hydrochlorothiazide [Lisinopril-Hctz 10-12.5 mg Tab] 1 tab PO QAM 10/09 Pioglitazone HCl/Metformin HCl [Actoplus Met 15 mg-850 mg Tab] 1 tab PO BID 10/09 Ranolazine [Ranexa] 500 mg PO BID 05/31/16 Tamsulosin HCl [Flomax] 0.4 mg PO QHS 05/31/16 Aspirin/Calcium Carbonate/Mag [Aspirin Buffered 325 mg Tab] 325 mg PO QHS - Social History Travel Outside of [place] in the Last 3 Months?: No Smoking Status: Former smoker - Family History Reports: Hypertension (MOTHER), Diabetes, Cancer (FATHER PROSTATE [place]), Cardiac Disorders (MOTHER). Denies: Stroke - Review of Systems Constitutional: Weakness - Respiratory Shortness of Breath. negative: Cough, Wheezing, Sputum - Cardiovascular negative: Chest Pain, Edema, Orthopnea, Palpitations, Syncope - Neurological Dizziness, Gait Difficulty, Speech Difficulty, Weakness - Physical Exam Constitutional: Alert, Other (He has marked central obesity and thick neck consistent with obstructive sleep apnea) Oriented to: Time, Person, Place Exam: Last Vital Signs Temp 98.3 F 06/04/16 07:14 Pulse 66 06/04/16 07:38 Resp 18 06/04/16 07:14 BP 153/64 06/04/16 07:14 Pulse Ox 94 06/04/16 07:14 Intake & Output 06/03/16 06/04/16 06/04/16 23:59 07:59 15:59 Intake Total 0 205 Output Total 1400 Balance 0 -1400 205 Patient's weight 339 lb 4 oz 340 lb 3 oz - HEENT Head: Normal (No bruit neck vein distention thyromegaly) Eye: Normal (PERRL, EOMI, Sclera white) Oropharynx: Normal (Pharynx:Moist without exudate,Gums-no swelling) Tympanic Membrane: Normal Nose: No Symptoms Reported (septum midline) - Respiratory/Cardiovascular Respiratory: Normal - CTA (BBS clear to auscultation without adventitious sounds ) Cardiovascular: Normal. negative: Systolic murmur, Gallop/S3, Gallop/S4 - GI Auscultation: Normal (Obese soft nondistended) Palpation: Normal (Soft,No rebound or guarding, non distended) Tenderness: Non tender Rectal Exam: Deferred - Musculoskeletal Back: Normal (Non-Tender) Extremities: Normal (Normal tone, Pulses 2+ No cyanosis or edema, FROM), Femoral Pulse, Pedal Pulse, Radial Pulse. negative: Calf Tenderness, Clubbing, Cyanosis, Edema, Pedal Edema - Integumentary Skin: Normal, Warm, Dry. negative: Clammy, Diaphoretic, Pale, Petechiae Lymphatics: Normal (no adenopathy) - Neurologic Memory Impaired: Normal Cerebellar: Normal Mood Description: Normal Thought: Coherent Perception: Normal - Lab Results Laboratory Tests 06/03/16 06/03/16 06/03/16 14:30 14:30 14:30 Hgb 14.4 Hct 43.3 Plt Count 210 Potassium 4.2 Creatinine 0.90 Estimated GFR (MDRD) > 60 Hemoglobin A1c 9.2 H LDL Cholesterol, Calc VLDL Cholesterol, Calc 06/04/16 05:20 Hgb Hct Plt Count Potassium Creatinine Estimated GFR (MDRD) Hemoglobin A1c LDL Cholesterol, Calc 90.0 VLDL Cholesterol, Calc 25.0 MRI: IMPRESSION: 1. Acute right paramedian pontine infarct. 2. Mild chronic small vessel ischemic disease in the cerebral white matter. These results will be called to the ordering clinician or internet sales representative by the Radiology Department at the imaging location. Echocardiogram shows normal left ventricular function, telemetry with 111 beat run of PVCs no other arrhythmia. - Assessment/Plan (1) CAD (coronary artery disease), [place] coronary artery I25.10 - ATHSCL HEART DISEASE OF [place] CORONARY ARTERY W/O ANG PCTRS Acute Present on Admission: Yes [place] heart with stable angina I25.118 - Atherosclerotic heart disease of [place] coronary artery with other forms of angina pectoris Comment: Stable I would continue his current medical regimen including aspirin statin beta-julia and ranolazine. This time I would not advise an ischemia evaluation. (2) Essential hypertension I10 - ESSENTIAL (PRIMARY) HYPERTENSION Acute Comment: Not a target I will increase the dose of ROSELINE-inhibitor (3) Hyperlipemia E78.5 - HYPERLIPIDEMIA, UNSPECIFIED Chronic Comment: Continues current low intensity statin. (4) Diastolic heart failure I50.30 - UNSPECIFIED DIASTOLIC (CONGESTIVE) HEART FAILURE Chronic Present on Admission: Yes chronic I50.32 - Chronic diastolic (congestive) heart failure Comment: Compensated continue current diuretic (5) CVA (cerebral vascular accident) I63.9 - CEREBRAL INFARCTION, UNSPECIFIED Acute Present on Admission: Yes unspecified I63.9 - Cerebral infarction, unspecified Comment: Stable managed by the hospitalist team (6) PVC (premature ventricular contraction) I49.3 - VENTRICULAR PREMATURE DEPOLARIZATION Acute Present on Admission: Clinically Unable to Determine Comment: He has frequent PVCs on the monitor, stroke office associated a catecholamine excess this time I would continue his current beta-julia and I would not initiate anti rhythmic therapy. I expect this to improve over the next 1-2 days. Case Care Discussed with: Patient, Family
[2016-06-04] MEDS ORDERED: VITAMINS (FOLGARD RX) TAB PO SCH (12:00)
[2016-06-04] MEDS ORDERED: CHOLECALCIFEROL 1000 UNITS TAB PO SCH (12:00)
[2016-06-04] MEDS ORDERED: CYANOCOBALAMIN (Vitamin B-12) 500 MCG TABLET PO SCH (12:00)
[2016-06-04] MEDS ORDERED: PERFLUTREN LIPID MICROSPHERE 1.5 ML VIAL IV ONE (13:00)
--- NOTE | 2016-06-04 13:00 | CAPUECHO ---
INDICATION: CVA HEIGHT: 200.7 cm (6 ft 7.0 in) WEIGHT: 155.6 kg (343.0 lbs) BP: 153/64 BSA: 2.919542 m MEASUREMENTS 2D RVIDd: 3.7 cm LVIDs: 4.2 cm EF(Teich): 39.73 % IVSd: 1.2 cm LVIDd: 5.3 cm LVPWd: 1.2 cm LA Diam: 4.7 cm EF Biplane: 53.67 % LAESV MOD A4C: 100.0 ml LAESV MOD A2C: 141.0 ml LAESV Index (A-L): 45.03 ml/m DOPPLER MV E Brandon: 1.07 m/s MV A Brandon: 0.87 m/s MV PHT: 47.25 ms MVA By PHT: 4.66 cm LVOT Vmax: 1.13 m/s AV Vmax: 1.49 m/s FINDINGS ------- Procedure:2D images, m-mode, color and spectral Doppler were obtained and reviewed. ECG rhythm:Sinus rhythm. Study quality:This was a technically difficult study with suboptimal views. Definity was used for en docardial resolution. Left Ventricle:There is mild concentric left ventricular hypertrophy. There is normal global left ventricular contractility. Overall left ventricular systolic function is normal with, an EF betwee n 55 - 60 %. Pseudonormal LV filling pattern, consistent with elevated LA pressure. No regional wall motion abnormalities were noted. Right Ventricle:The right ventricle is normal in size and function. The RV was not well visualized . Left Atrium:The left atrium is mildly dilated. Right Atrium:The right atrium is normal in size and function. The right atrium was not well visual ized. Aortic Valve:The aortic valve is trileaflet, and appears structurally normal. No aortic stenosis or regurgitation. Mitral Valve:Normal appearing mitral valve. There is trace mitral regurgitation. Tricuspid Valve:The tricuspid valve appears structurally normal. Trace tricuspid regurgitation pre sent. Pulmonic Valve:The pulmonic valve is normal. There is no pulmonic regurgitation present. Aorta:The aortic root, ascending aorta and aortic arch appear normal. IVC:Normal inferior vena cava with normal inspiratory collapse. Pericardium:There is no pericardial effusion. CONCLUSIONS 1. There is normal global left ventricular contractility. 2. Overall left ventricular systolic function is normal with, an EF between 55 - 60 %. 3. The left atrium is mildly dilated. Electronically Signed By: Rolo Bernabe MD, [facility] Electronically Signed On: 12:52:09
[2016-06-04 14:09] VITALS: BP 160/67
[2016-06-04 14:44] VITALS: PULSE 66
--- NOTE | 2016-06-04 16:16 | PCM.DCS92 ---
- Final/Secondary Discharge Diagnosis (1) CVA (cerebral vascular accident) Acute I63.9 - CEREBRAL INFARCTION, UNSPECIFIED Present on Admission: Yes unspecified I63.9 - Cerebral infarction, unspecified Comment: Based on Neurology recommendation continue aspirin 81 and Plavix 75 daily. Continue Folgard and fish oil as well. Detailed education was provided the patient on importance of secondary stroke prevention and risk factors modification. (2) Poorly controlled type 2 diabetes mellitus Acute E11.65 - TYPE 2 DIABETES MELLITUS WITH HYPERGLYCEMIA Present on Admission: Yes Comment: Continue ADA diet change Levemir to 40 units, continue oral agents (3) Essential hypertension Acute I10 - ESSENTIAL (PRIMARY) HYPERTENSION Present on Admission: Yes Comment: Continue meds keep SBP above 140 (4) Hyperlipemia Chronic E78.5 - HYPERLIPIDEMIA, UNSPECIFIED Present on Admission: Yes mixed hyperlipidemia E78.2 - Mixed hyperlipidemia Comment: Continue statin and fish oil (5) CAD (coronary artery disease), [place] coronary artery Chronic I25.10 - ATHSCL HEART DISEASE OF [place] CORONARY ARTERY W/O ANG PCTRS Present on Admission: Yes [place] heart with stable angina I25.118 - Atherosclerotic heart disease of [place] coronary artery with other forms of angina pectoris Comment: Stable on medical therapy, follow by Cardiology (6) Obesity Chronic E66.9 - OBESITY, UNSPECIFIED Present on Admission: Yes due to excess calories Comment: Weight loss medically necessary and indicated Discharge Disposition: Home Discharge Condition: Improved Cognitive Discharge Status: Unimpaired Fuctional Discharge Status: Walker Assistance Home Medications / New Prescriptions: [place]-3 Fatty Acids/Fish Oil [Fish Oil Dr 1,000 mg Softgel] 2 each PO TID # 120 capsule. Vitamins (Folgard Rx) [Folgard Rx-2.2] 1 cap PO DAILY #90 tab Aspirin (Enteric Coated) [Halfprin] 81 mg PO DAILY #90 tab Insulin Detemir [Levemir] 40 unit SQ DAILY #1 pen Lisinopril 20 mg PO DAILY #90 tablet Clopidogrel Bisulfate [Plavix] 75 mg PO DAILY #90 tab Continue Pravastatin Sodium [Pravachol] 20 mg PO QHS Cholecalciferol (Vitamin D3) [Vitamin D3] 1,000 unit PO QAM Tamsulosin HCl [Flomax] 0.4 mg PO QHS Furosemide [Lasix] 20 mg PO DAILY Docusate Sodium [Doc-Q-Lace] 100 mg PO DAILY PRN PRN Reason: Constipation Ranolazine [Ranexa] 500 mg PO BID Pioglitazone HCl/Metformin HCl [Actoplus Met 15 mg-850 mg Tab] 1 tab PO BID Cyanocobalamin (Vitamin B-12) [B-12] 1,500 mcg PO QAM Fluticasone/Vilanterol [Breo Ellipta 200-25 Mcg INH] 1 puff INH DAILY PRN PRN Reason: BREATHING Fluticasone Propionate [Flonase Nasal [place]] 1 spray SALVADOR HS Discontinued Lisinopril/Hydrochlorothiazide [Lisinopril-Hctz 10-12.5 mg Tab] 1 tab PO QAM Insulin Detemir [Levemir] 30 unit SQ QHS Aspirin/Calcium Carbonate/Mag [Aspirin Buffered 325 mg Tab] 325 mg PO QHS O2 Device: Room Air Diet at Discharge: Heart Healthy, Low Salt, Diabetic, 2200 Calorie, High Fiber Activity: Limited Call Office For: Fever over 101 F Discontinue use of:: Alcohol, All Illegal Substances, All Types of Tobacco - DC Summary Notes Hospital Course Note:: Discharge summary on patient named MARYLOU ARAYA admitted to [facility] on 06/03/16 by Mathew Wright MD. Date of discharge is []. Patient has initially presented emergency room on June 03 for evaluation of stroke symptoms. Please refer to the admission for further details. Patient was admitted to monitor bed and stroke workup was completed. 2D echo showed normal LV size and systolic function with normal ejection fraction, carotid Dopplers showed less than 50% stenosis. Based on Neurology recommendation treatment was changed to aspirin 81 and Plavix 75 and patient neurological symptoms have significantly improved. He was seen by speech therapy and was found to be at no risk for aspiration. He was seen by PT OT and outpatient rehab was recommended. His hemoglobin A1c was 9.2 and Levemir was up titrated upon discharge. His LDL was 90. 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 On June 04 in clinically stable condition patient has been discharged home to the care of family and his PCP. Multiple family members were kept abreast on clinical progression and results of all the testing in the hospital. Total Time: 40 min . Code: 85925 (<30 min.) - Physical Exam Vital Signs: Last Vital Signs Temp 98.3 F 06/04/16 12:00 Pulse 66 06/04/16 14:00 Resp 18 06/04/16 07:14 BP 160/67 06/04/16 12:00 Pulse Ox 94 06/04/16 12:00 Oxygen Pulse Oxygen Saturation 94 O2 Device Room Air Oxygen Flow Rate Fraction of Inspired Oxygen ( FIO2) Constitutional: Alert, Other (Slurring of the speech noted) Oriented to: Time, Person, Place - HEENT Head: Normal Eye: Normal Oropharynx: Normal ENT EAC: Normal TMJ: Normal Nose: No Symptoms Reported - Respiratory/Cardiovascular Respiratory: Diminished, Rhonchi Cardiovascular: Normal, Systolic murmur - GI Auscultation: Normal Palpation: Normal Tenderness: Non tender Rectal Exam: Deferred - Exam Deferred: Yes - Musculoskeletal Back: Normal Extremities: Normal, Edema - Integumentary Skin: Normal, Warm, Dry Lymphatics: Normal - Neurologic Memory Impaired: Normal Motor Function: Abnormal Cranial Nerve: negative: 12 Cerebellar: Ataxia Mood Description: Normal, Anxious Thought: Coherent Perception: Normal - Other Exam Other Exam Findings: Allergies Iodinated Contrast Media - IV Dye Allergy (Intermediate, Verified 06/03/16 14:05 ) Fever iodine Allergy (Verified 06/03/16 14:05) Fever 06/03/16 14:30 06/03/16 14:30 Last Vital Signs Temp 98.3 F 06/04/16 12:00 Pulse 66 06/04/16 14:00 Resp 18 06/04/16 07:14 BP 160/67 06/04/16 12:00 Pulse Ox 94 06/04/16 12:00 Intake & Output 06/01/16 06/02/16 06/03/16 06/04/16 23:59 23:59 23:59 23:59 Intake Total 0 525 Output Total 2310 Balance 0 -1785 Patient's weight 153.881 kg 154.306 kg Patient Name: MARYLOU ARAYA LOC: [facility] : 1950 AGE: 65 Order Date:06/03/16 Date of Service:01/09 Report # [id number] Ord Physician: Mathew Wright MD Exam # [id number] Emergency Physician: Dion Barr DO Exam(s): [id number] US/US CAROTID DUPLEX-BILAT CLINICAL DATA: Pontine infarct. Left-sided weakness. EXAM: BILATERAL CAROTID DUPLEX ULTRASOUND TECHNIQUE: [place] scale imaging, color Doppler and duplex ultrasound were performed of bilateral carotid and vertebral arteries in the neck. COMPARISON: MRI 06/03/2016 FINDINGS: Criteria: Quantification of carotid stenosis is based on velocity parameters that correlate the residual internal carotid diameter with NASCET-based stenosis levels, using the diameter of the distal internal carotid lumen as the denominator for stenosis measurement. The following velocity measurements were obtained: RIGHT ICA: 108 cm/sec CCA: 112 cm/sec SYSTOLIC ICA/CCA RATIO: 1.0 DIASTOLIC ICA/CCA RATIO: 1.4 ECA: 163 cm/sec LEFT ICA: 108 cm/sec CCA: 129 cm/sec SYSTOLIC ICA/CCA RATIO: 0.8 DIASTOLIC ICA/CCA RATIO: 2.6 ECA: 24 cm/sec RIGHT CAROTID ARTERY: Evidence for echogenic plaque in the distal right internal carotid artery. There is no significant plaque or stenosis in the proximal right internal carotid artery. Right common carotid artery is widely patent without significant plaque or stenosis. Right external carotid artery is patent with normal waveforms and velocities. RIGHT VERTEBRAL ARTERY: Not visualized. LEFT CAROTID ARTERY: Small amount of echogenic plaque at the left carotid bulb and proximal internal carotid artery. Left external carotid artery appears to be patent but limited evaluation. LEFT VERTEBRAL ARTERY: Not visualized. IMPRESSION: The study has technical limitations. Bilateral carotid arteries are patent with a small amount of plaque at the left carotid bulb and in the distal right internal carotid artery. Estimated degree of stenosis in the internal carotid arteries is less than 50% bilaterally. Vertebral arteries are not identified on this examination. The neck arterial structures may be better characterized with an MRA examination. Electronically Signed By: Hemanth Burns M.D. On: 06/04/2016 07:35 Electronically Signed By: Hemanth Burns MD Electronically Signed Date/Time: [id number] Dictate Date/Time: 06/04/16 0727 Technologist: Amber Vargas Transcribed By: Susie Malone
--- NOTE | 2016-06-04 18:18 | PCM.NEUCO ---
Consultation Date: 06/04/16 Requesting Physician: Mathew Wright Consulting Doctor: Laura Longoria Reason For Consult: Stroke/TIA 65 y.o. male with PMH significant for poorly controlled DM, CAD, HTN, and hyperlipidemia admitted yesterday for acute CVA. Patient's symptoms of left sided weakness initially started on 05/29/16 and slurred speech on 05/27/16 but he did not present to ED until 05/31/16 at the urging of family. Other symptoms included expressive aphasia and balance difficulty. In the ED a head CT was negative for any acute intracranial findings. He was diagnosed with TIA and ASA was increased to 325 mg. His symptoms persisted so his PCP ordered a brain MRI which was done yesterday. The MRI showed an acute right paramedian pontine infarct. Patient was sent to ED and he was admitted for further evaluation. Plavix was added to 81 mg ASA per recommendation of neurologist construction project engineer. - Past Medical and Surgical History Cardiac History: Reports: Coronary Artery Disease, Hypertension, Congestive Heart Failure, Cardiac Catheterization (2002), CABG, Hypercholesterolemia, Valvular Heart Disease. Denies: Heart Attack (UNKNOWN) Respiratory History: Reports: Asthma. Denies: Pneumonia GI/ History: Reports: IBD, Diverticulosis, Pancreatitis Systemic History: Reports: Cancer (prostate). Denies: Anemia Musculoskeletal History: Reports: Arthritis Psychological History: Denies: Depression Neurological History: Reports: Cerebrovascular Accident Past Surgical History: Reports: Cholecystectomy, CABG, Cardiac Catheterization ( 2002), Other (PROSTATECTOMY, right tkr) Allergies Iodinated Contrast Media - IV Dye Allergy (Intermediate, Verified 06/03/16 14:05 ) Fever iodine Allergy (Verified 06/03/16 14:05) Fever Home Medications Pravastatin Sodium [Pravachol] 20 mg PO QHS 04/15/14 Cholecalciferol (Vitamin D3) [Vitamin D3] 1,000 unit PO QAM 05/31/16 Cyanocobalamin (Vitamin B-12) [B-12] 1,500 mcg PO QAM 05/31/16 Docusate Sodium [Doc-Q-Lace] 100 mg PO DAILY PRN 05/31/16 Fluticasone Propionate [Flonase Nasal [place]] 1 spray SALVADOR HS 05/31/16 Fluticasone/Vilanterol [Breo Ellipta 200-25 Mcg INH] 1 puff INH DAILY PRN Furosemide [Lasix] 20 mg PO DAILY 05/31/16 Pioglitazone HCl/Metformin HCl [Actoplus Met 15 mg-850 mg Tab] 1 tab PO BID 10/09 Ranolazine [Ranexa] 500 mg PO BID 05/31/16 Tamsulosin HCl [Flomax] 0.4 mg PO QHS 05/31/16 Aspirin (Enteric Coated) [Halfprin] 81 mg PO DAILY #90 tab 06/04/16 Clopidogrel Bisulfate [Plavix] 75 mg PO DAILY #90 tab 06/04/16 Insulin Detemir [Levemir] 40 unit SQ DAILY #1 pen 06/04/16 Lisinopril 20 mg PO DAILY #90 tablet 06/04/16 [place]-3 Fatty Acids/Fish Oil [Fish Oil 1,000 mg Softgel] 2 each PO TID #120 capsule. 06/04/16 Vitamins (Folgard Rx) [Folgard Rx-2.2] 1 cap PO DAILY #90 tab 06/04/16 - Social History Travel Outside of [place] in the Last 3 Months?: No Lives: With Family Smoking Status: Former smoker - Family History Reports: Hypertension (MOTHER), Diabetes, Cancer (FATHER PROSTATE CA), Cardiac Disorders (MOTHER). Denies: Stroke - Review of Systems Eyes: No Symptoms Reported (Denies visual changes) Ears: No Symptoms Reported (Denies changes in hearing) Throat/Neck: No Symptoms Reported (Denies neck pain) Cardiovascular: No Symptoms Reported (Denies CP) Neurological: Other (Positive for balance difficulty) Musculoskeletal:: No Symptoms Reported (Denies back pain) Endocrine: Diabetes - Physical Exam Vital Signs: Initial Vitals Temperature 98.3 F 06/03/16 14:00 Pulse Rate 84 06/03/16 14:00 Respiratory Rate 18 06/03/16 14:00 Blood Pressure 191/84 H 06/03/16 14:00 Pulse Oxygen Saturation 97 06/03/16 14:00 Selected Entries 06/04/16 12:00 Temperature 98.3 F Pulse Rate 73 Blood Pressure 160/67 Constitutional: No apparent distress, Alert Oriented to: Person, Place - HEENT Head: Normal - Musculoskeletal Back: Normal - Mental Status Orientation: Person, Place Speech: Fluent Coginitive: Normal Motor Function: Normal (strength 5/5 in in RUE/RLE and mildly decreased in 5-/5 in LUE/LLE) Affect: Normal Thought: Coherent Perception: Normal - Lab Results Laboratory Tests 06/03/16 06/03/16 06/03/16 14:30 14:30 14:30 WBC 7.4 Hgb 14.4 Hct 43.3 BUN 21 H Creatinine 0.90 Glucose 253 H Hemoglobin A1c 9.2 H Triglycerides Cholesterol LDL Cholesterol, Calc VLDL Cholesterol, Calc HDL Cholesterol TSH 06/03/16 06/04/16 14:30 05:20 WBC Hgb Hct BUN Creatinine Glucose Hemoglobin A1c Triglycerides 125 Cholesterol 151 LDL Cholesterol, Calc 90.0 VLDL Cholesterol, Calc 25.0 HDL Cholesterol 36.0 L TSH 1.46 - Diagnostic Findings EXAM: MRI HEAD WITHOUT AND WITH CONTRAST COMPARISON: Head CT 05/31/2016 FINDINGS: There is a 2 x 1 cm focus of restricted diffusion in the right paramedian yosi consistent with acute infarct. Associated cytotoxic edema is noted without mass effect. There is no evidence of intracranial hemorrhage, mass, midline shift, or extra-axial fluid collection. There is mild cerebral atrophy. Foci of T2 hyperintensity in the periventricular greater than subcortical cerebral white matter bilaterally are nonspecific but compatible with mild chronic small vessel ischemic disease. No abnormal enhancement is identified. Orbits are unremarkable. Paranasal sinuses and mastoid air cells are clear. Major intracranial vascular flow voids are preserved. IMPRESSION: 1. Acute right paramedian pontine infarct. 2. Mild chronic small vessel ischemic disease in the cerebral white matter. EXAM: BILATERAL CAROTID DUPLEX ULTRASOUND IMPRESSION: The study has technical limitations. Bilateral carotid arteries are patent with a small amount of plaque at the left carotid bulb and in the distal right internal carotid artery. Estimated degree of stenosis in the internal carotid arteries is less than 50% bilaterally. Vertebral arteries are not identified on this examination. The neck arterial structures may be better characterized with an MRA examination. Echocardiogram CONCLUSIONS 1. There is normal global left ventricular contractility. 2. Overall left ventricular systolic function is normal with, an EF between 55 - 60 %. 3. The left atrium is mildly dilated. - Assessment/Plan (1) CVA (cerebral vascular accident) I63.9 - CEREBRAL INFARCTION, UNSPECIFIED Acute Present on Admission: Yes unspecified I63.9 - Cerebral infarction, unspecified Comment: Patient admitted with acute right paramedian pontine infarct. His weakness has significantly improved and his slurred speech has resolved. He is to be discharged on Plavix and 81 mg ASA. 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 Outpatient rehab has been arranged. CD with no significant stenosis. Echocardiogram was negative for emboli. Reviewed stroke risk factors with patient and spouse. He will f/u in the office. Case Care Discussed with: Patient, Family (Spouse)
--- NOTE | 2016-06-05 11:02 | CAPUEKG ---
[place], [place] Test Date: 2016-06-04 Pat Name: MARYLOU ARAYA Department: Room: 447 Gender: Male Clipper And Turner: ROULA : Requested By: Order Number: Reading MD: Rolo Bernabe MD Measurements Intervals [place] Rate: 65 P: 106 [place]: 220 QRS: 33 QRSD: 146 T: 11 QT: 438 QTc: 455 Interpretive Statements Sinus rhythm with 1st degree AV block Right bundle branch block Abnormal ECG Electronically Signed On 06-05-16 11:01:17 EST by Rolo Bernabe MD <[id number] [id number]
== END 2016-06-04 18:25 | disposition home or self-care (01) | DRG 65 ==
LOC: ED 13:19 → PCU 17:20
PROVIDERS: ADMIT Internal Medicine; ATTEND Internal Medicine
PROC: B246ZZZ Ultrasonography of Right and Left Heart (ICD-10-PCS; 2016-06-03)
PROC: B345ZZZ Ultrasonography of Bilateral Common Carotid Arteries (ICD-10-PCS; principal; 2016-06-04)
PROC: B348ZZZ Ultrasonography of Bilateral Internal Carotid Arteries (ICD-10-PCS; 2016-06-04)
DX: I63.9 Cerebral infarction, unspecified (principal); G81.94 Hemiplegia, unspecified affecting left nondominant side; I11.0 Hypertensive heart disease with heart failure; R13.10 Dysphagia, unspecified; E11.65 Type 2 diabetes mellitus with hyperglycemia; Z68.42 Body mass index [BMI] 45.0-49.9, adult; I50.32 Chronic diastolic (congestive) heart failure; R27.0 Ataxia, unspecified; R47.81 Slurred speech; R47.01 Aphasia; E78.2 Mixed hyperlipidemia; I25.118 Atherosclerotic heart disease of native coronary artery with other forms of angina pectoris; E66.9 Obesity, unspecified; E78.00 Pure hypercholesterolemia, unspecified; J45.909 Unspecified asthma, uncomplicated; K58.9 Irritable bowel syndrome, unspecified; M19.90 Unspecified osteoarthritis, unspecified site; G47.33 Obstructive sleep apnea (adult) (pediatric); Z96.651 Presence of right artificial knee joint; I49.3 Ventricular premature depolarization; Z95.1 Presence of aortocoronary bypass graft; Z85.46 Personal history of malignant neoplasm of prostate; Z86.73 Personal history of transient ischemic attack (TIA), and cerebral infarction without residual deficits; Z90.49 Acquired absence of other specified parts of digestive tract; Z90.79 Acquired absence of other genital organ(s); Z91.041 Radiographic dye allergy status; Z79.4 Long term (current) use of insulin; Z79.82 Long term (current) use of aspirin; Z79.51 Long term (current) use of inhaled steroids; Z87.891 Personal history of nicotine dependence
CPT/HCPCS: 36415; 80053; 80061; 81001; 82043; 82962; 83036; 83090; 83735; 84443; 85025; 87086; 93005; 93306; 93880; 96372; 97162; 97165; 99284; G0237; J1650; J3490; Q9957